=== PATIENT | female | born 1985 | race Caucasian/White ===

== ENCOUNTER 2020-08-31 20:03 | Emergency (ER) | payer OTHER, MEDICAID, SELFPAY ==
[2020-08-31] VITALS (9 sets, daily range): BP systolic 104–112; BP diastolic 62–68; PULSE 81–92; RESP 12–29; TEMP 36.9; O2SAT 94–100
--- NOTE | 2020-08-31 20:09 | ED.AMS ---
HPI - Altered Mental Status General Chief Complaint: Unresponsive Stated Complaint: Passed Out Time Seen by Provider: 08/31/20 20:05 Limitations: altered mental status History of Present Illness HPI narrative: Patient is a 34-year-old female who is brought in by her friend who states that she has a severe alcoholism. Apparently she does not drink she has a seizure or starts shaking. She is wanting detox. She called her friend bring her to the emergency department. While in line at [id number] to get food on the way she passed out and is now on arousable. Unaware of any other drug use. Review of Systems Review of Systems ROS Unobtainable: Unobtainable due to medical condition Exam Initial Vital Signs Initial Vital Signs: Vital Signs Pulse Rate 92 H 08/31/20 20:11 Respiratory Rate 20 08/31/20 20:11 Blood Pressure 112/66 08/31/20 20:11 Pulse Oximetry 94 08/31/20 20:11 GENERAL: Responsive to pain, weak gag reflex HEENT: Head atraumatic,EOMI, pupils dilated reactive to light CARDIOVASCULAR: Regular rate and rhythm without murmurs, rubs or gallops. RESPIRATORY: Breath sounds equal bilaterally, no wheezes rales or rhonchi. ABDOMEN: Soft, nontender. Normoactive bowel sounds all 4 quadrants. No guarding or rebound. EXTREMITIES: Normal range of motion, no clubbing or edema. Neurovascularly intact NEUROLOGICAL: Responsive to his pain mild gag SKIN: Warm, dry, no laceration, no petechiae, no rashes or lesions. Course Orders Ordered: ED Orders 09/01/20 02:06 [place] [facility] [place] [facility] [place] Sodium Chloride (Normal Saline 0.9%) 1,000 mls @ 150 mls/hr IV CONT AYAZ Last Infusion: 09/01/20 03:37 Dose: 0 mls/hr Documented by: Admin: 08/31/20 20:15 Dose: 150 mls/hr Documented by: [email or web address] Vital Signs Vital signs: Vital Signs - 8 hr 08/31/20 23:30 09/01/20 00:00 09/01/20 00:30 Pulse Rate 81 80 88 Respiratory Rate 29 H 15 21 Blood Pressure Pulse Oximetry 97 100 09/01/20 00:54 09/01/20 01:00 09/01/20 01:10 Pulse Rate 83 86 87 Respiratory Rate 16 18 15 Blood Pressure 108/69 106/63 100/56 L Pulse Oximetry 100 98 98 09/01/20 01:30 09/01/20 02:00 09/01/20 02:30 Pulse Rate 76 77 74 Respiratory Rate 14 13 14 Blood Pressure 102/58 L 101/66 88/52 L Pulse Oximetry 99 98 99 09/01/20 02:36 09/01/20 03:00 09/01/20 03:30 Pulse Rate 87 78 80 Respiratory Rate 16 15 15 Blood Pressure 92/57 L 100/58 L 102/67 Pulse Oximetry 99 99 92 09/01/20 04:00 09/01/20 04:30 09/01/20 05:00 Pulse Rate 72 75 76 Respiratory Rate 13 13 15 Blood Pressure 97/65 92/50 L Pulse Oximetry 97 98 99 09/01/20 05:01 09/01/20 05:30 09/01/20 06:00 Pulse Rate 75 82 78 Respiratory Rate 15 16 13 Blood Pressure 104/70 106/65 111/63 Pulse Oximetry 100 99 100 09/01/20 06:30 Pulse Rate 84 Respiratory Rate Blood Pressure Pulse Oximetry 100 MDM - Altered Mental Status Lab Data Attestation: I reviewed the patient's lab results. Result diagrams: 08/31/20 20:00 08/31/20 20:00 Labs: Lab Results 08/31/20 08/31/20 08/31/20 Range/Units 20:00 20:00 20:00 WBC 9.0 (4.5-11.0) X10^3/uL RBC 3.93 L (4.0-5.2) X10^6/uL Hgb 12.4 (12.0-16.0) g/dL Hct 36.1 (36-46) % MCV 91.9 (80-100) fL MCH 31.5 (26-34) PG MCHC 34.2 (30-36) % RDW 12.6 (11.6-14.8) % Plt Count 315 (150-400) X10^3/uL Neut % (Auto) 41.9 L (50-75) % Lymph % (Auto) 48.7 H (25-40) % [place] % (Auto) 6.3 (3-14) % Eos % (Auto) 2.4 (2-4) % Baso % (Auto) 0.7 (0-2) % Neut # (Auto) 3800 (6616-5432) /uL Lymph # (Auto) 4400 (3156-0578) /uL [place] # (Auto) 600 (0-900) /uL Eos # (Auto) 200 (0-450) /uL Baso # (Auto) 100 (0-100) /uL ABG pH (7.35-7.45) ABG pCO2 (35-45) mmHg ABG pO2 (80-100) mmHg ABG HCO3 (22-26) mmol/L ABG Total CO2 (21-31) mmol/L ABG O2 Saturation (95-100) % ABG Base Excess (-2-2) mmol/L FiO2 Sodium 145 (137-145) mmol/L Potassium 3.9 (3.4-5.1) mmol/L Chloride 108 H (98-107) mmol/L Carbon Dioxide 26 (22-32) mmol/L BUN 13 (7-17) mg/dL Creatinine 0.73 (0.52-1.04) mg/dL Estimated GFR > 60.0 (>60) mL/min BUN/Creatinine Ratio 17.8 (6-22) Glucose 93 (70-100) mg/dL Lactate (0.7-2.1) mmol/L Calcium 8.2 L (8.4-10.2) mg/dL Total Bilirubin 0.2 (0.2-1.3) mg/dL AST 29 (14-36) IU/L ALT 28 (<35) IU/L Alkaline Phosphatase 37 L (38-126) U/L Total Creatine Kinase 74 (30-135) U/L CK-MB (CK-2) TNP CK-MB (CK-2) Rel Index TNP Troponin I < 0.012 (0.01-0.034) ng/mL Total Protein 6.6 (6.3-8.2) g/dL Albumin 4.0 (3.5-5.0) g/dL Globulin 2.6 (1.7-4.1) g/dL Albumin/Globulin Ratio 1.5 (1.0-2.8) TSH (0.47-4.68) uIU/mL Prolactin 21.9 H (3.0-18.6) ng/mL Salicylates < 1.0 (<20) mg/dL U Opiates 300ng/mL cut (Negative) Ur Oxycodone Screen (Negative) Urine Methadone Screen (Negative) Acetaminophen < 10 L (10-30) ug/mL Ur Barbiturates Screen (Negative) U Tricyclic Antidepress (Negative) Ur Phencyclidine Scrn (Negative) Ur Amphetamines Screen (Negative) U Methamphetamines Scrn (Negative) Ur MDMA Scrn (Ecstasy) (Negative) U Benzodiazepines Scrn (Negative) Urine Cocaine Screen (Negative) U Marijuana (THC) Screen (Negative) Ethyl Alcohol 455 H* ( - 10) mg/dL 08/31/20 08/31/20 08/31/20 Range/Units 20:00 20:00 20:05 WBC (4.5-11.0) X10^3/uL RBC (4.0-5.2) X10^6/uL Hgb (12.0-16.0) g/dL Hct (36-46) % MCV (80-100) fL MCH (26-34) PG MCHC (30-36) % RDW (11.6-14.8) % Plt Count (150-400) X10^3/uL Neut % (Auto) (50-75) % Lymph % (Auto) (25-40) % [place] % (Auto) (3-14) % Eos % (Auto) (2-4) % Baso % (Auto) (0-2) % Neut # (Auto) (3466-3543) /uL Lymph # (Auto) (2150-7693) /uL [place] # (Auto) (0-900) /uL Eos # (Auto) (0-450) /uL Baso # (Auto) (0-100) /uL ABG pH 7.42 (7.35-7.45) ABG pCO2 44.1 (35-45) mmHg ABG pO2 100 (80-100) mmHg ABG HCO3 29 H (22-26) mmol/L ABG Total CO2 30 (21-31) mmol/L ABG O2 Saturation 98 (95-100) % ABG Base Excess 4.0 H (-2-2) mmol/L FiO2 21 Sodium (137-145) mmol/L Potassium (3.4-5.1) mmol/L Chloride (98-107) mmol/L Carbon Dioxide (22-32) mmol/L BUN (7-17) mg/dL Creatinine (0.52-1.04) mg/dL Estimated GFR (>60) mL/min BUN/Creatinine Ratio (6-22) Glucose (70-100) mg/dL Lactate 1.8 (0.7-2.1) mmol/L Calcium (8.4-10.2) mg/dL Total Bilirubin (0.2-1.3) mg/dL AST (14-36) IU/L ALT (<35) IU/L Alkaline Phosphatase (38-126) U/L Total Creatine Kinase (30-135) U/L CK-MB (CK-2) CK-MB (CK-2) Rel Index Troponin I (0.01-0.034) ng/mL Total Protein (6.3-8.2) g/dL Albumin (3.5-5.0) g/dL Globulin (1.7-4.1) g/dL Albumin/Globulin Ratio (1.0-2.8) TSH 0.410 L (0.47-4.68) uIU/mL Prolactin (3.0-18.6) ng/mL Salicylates (<20) mg/dL U Opiates 300ng/mL cut (Negative) Ur Oxycodone Screen (Negative) Urine Methadone Screen (Negative) Acetaminophen (10-30) ug/mL Ur Barbiturates Screen (Negative) U Tricyclic Antidepress (Negative) Ur Phencyclidine Scrn (Negative) Ur Amphetamines Screen (Negative) U Methamphetamines Scrn (Negative) Ur MDMA Scrn (Ecstasy) (Negative) U Benzodiazepines Scrn (Negative) Urine Cocaine Screen (Negative) U Marijuana (THC) Screen (Negative) Ethyl Alcohol ( - 10) mg/dL 08/31/20 Range/Units 20:50 WBC (4.5-11.0) X10^3/uL RBC (4.0-5.2) X10^6/uL Hgb (12.0-16.0) g/dL Hct (36-46) % MCV (80-100) fL MCH (26-34) PG MCHC (30-36) % RDW (11.6-14.8) % Plt Count (150-400) X10^3/uL Neut % (Auto) (50-75) % Lymph % (Auto) (25-40) % [place] % (Auto) (3-14) % Eos % (Auto) (2-4) % Baso % (Auto) (0-2) % Neut # (Auto) (3826-1425) /uL Lymph # (Auto) (6416-3051) /uL [place] # (Auto) (0-900) /uL Eos # (Auto) (0-450) /uL Baso # (Auto) (0-100) /uL ABG pH (7.35-7.45) ABG pCO2 (35-45) mmHg ABG pO2 (80-100) mmHg ABG HCO3 (22-26) mmol/L ABG Total CO2 (21-31) mmol/L ABG O2 Saturation (95-100) % ABG Base Excess (-2-2) mmol/L FiO2 Sodium (137-145) mmol/L Potassium (3.4-5.1) mmol/L Chloride (98-107) mmol/L Carbon Dioxide (22-32) mmol/L BUN (7-17) mg/dL Creatinine (0.52-1.04) mg/dL Estimated GFR (>60) mL/min BUN/Creatinine Ratio (6-22) Glucose (70-100) mg/dL Lactate (0.7-2.1) mmol/L Calcium (8.4-10.2) mg/dL Total Bilirubin (0.2-1.3) mg/dL AST (14-36) IU/L ALT (<35) IU/L Alkaline Phosphatase (38-126) U/L Total Creatine Kinase (30-135) U/L CK-MB (CK-2) CK-MB (CK-2) Rel Index Troponin I (0.01-0.034) ng/mL Total Protein (6.3-8.2) g/dL Albumin (3.5-5.0) g/dL Globulin (1.7-4.1) g/dL Albumin/Globulin Ratio (1.0-2.8) TSH (0.47-4.68) uIU/mL Prolactin (3.0-18.6) ng/mL Salicylates (<20) mg/dL U Opiates 300ng/mL cut Negative (Negative) Ur Oxycodone Screen Negative (Negative) Urine Methadone Screen Negative (Negative) Acetaminophen (10-30) ug/mL Ur Barbiturates Screen Negative (Negative) U Tricyclic Antidepress Negative (Negative) Ur Phencyclidine Scrn Negative (Negative) Ur Amphetamines Screen Negative (Negative) U Methamphetamines Scrn Negative (Negative) Ur MDMA Scrn (Ecstasy) Negative (Negative) U Benzodiazepines Scrn Positive H (Negative) Urine Cocaine Screen Negative (Negative) U Marijuana (THC) Screen Negative (Negative) Ethyl Alcohol ( - 10) mg/dL Point of Care Testing Test Results Negative Glucose POC 96 Urine Dip Bedside Urine Glucose Negative Bedside Urine Bilirubin - Negative Bedside Urine Ketone - Negative Urine Specific [place] 1.025 Bedside Urine Occult Blood - Negative Bedside Urine pH 6.0 Bedside Urine Protein - Negative Bedside Urine Urobilinogen - Negative Bedside Urine Nitrite - Negative Bedside Urine Leukocytes - Negative Esterase MDM Narrative Medical decision making narrative: There is no sign of trauma. Patient does start pulling on younger and rolls over. At this time awaiting for alcohol result. Alcohol is elevated. The patient does have an Jaye report that shows she got 20 tablets of Xanax on 08/28/2020. Her urine is also positive for benzos. Awaiting for her to become more awake. 0630 patient is awake and has a steady gait to the restroom. She initially stated that she wanted to just go drink and leave. When I asked her if she wanted detox she said yes and no. She is choosing to call her friend and be discharged. She denied any suicidal ideation. Discharge Plan Departure Patient Disposition: Home Clinical Impression: Alcohol intoxication Qualifiers: Complication of substance-induced condition: uncomplicated Qualified Code(s): F10.920 - Alcohol use, unspecified with intoxication, uncomplicated Instructions: Delirium Tremens Activity Restrictions/Additional Instructions: *You have been diagnosed with alcohol intoxication *What to do: At this time if you should ever want detox your more than welcome to return to the emergency department. It is strongly recommended that you stop drinking under supervision *Continue to take medications as directed *Follow up with your primary care provider in 2-3 days *Return to ER if you should have any new, worsening or concerning symptoms
[2020-08-31 20:13] LABS: Add Manual Diff / Slide Review NO; Basophils Absolute Auto 100 /uL (0-100); Basophils Percent Auto 0.7 % (0-2); Eosinophils Absolute Auto 200 /uL (0-450); Eosinophils Percent Auto 2.4 % (2-4); Hematocrit 36.1 % (36-46); Hemoglobin 12.4 g/dL (12.0-16.0); Lymphocytes Absolute Auto 4400 /uL (1100-4500); Lymphocytes Percent Auto 48.7 % (25-40); Mean Corpuscular HGB Conc 34.2 % (30-36); Mean Corpuscular Hemoglobin 31.5 PG (26-34); Mean Corpuscular Volume 91.9 fL (80-100); Monocytes Absolute Auto 600 /uL (0-900); Monocytes Percent Auto 6.3 % (3-14); Neutrophils Absolute Auto 3800 /uL (1500-7000); Neutrophils Percent Auto 41.9 % (50-75); Platelet Count 315 X10^3/uL (150-400); Red Blood Cell Count 3.93 X10^6/uL (4.0-5.2); Red Cell Distribution Width 12.6 % (11.6-14.8)
[2020-08-31] MEDS: SODIUM CHLORIDE 0.9% 1,000 ML 150 ML IV (20:15)
--- NOTE | 2020-08-31 20:20 | PC.NURSE ---
Pt found unresponsive in passenger seat of car in ED entrance. opens eyes briefly to noxious stimuli. assisted into WC and brought into rm 1. GCS 8. intubation equipment at bedside. pt with +gag/cough at this time. placed on suture gauger in line of sight room, placed on ETCO2, 99% RA. ETCO2 44. NSR 88, BP 112/66. Friend at bedside states pt called her asking her to bring to ED for detox. ingested unk amt of ETOH. Friend states they are coworkers and she does not know pt that well. Narcan 2mg IV given per verbal order by Dr Sheriff with no change in mentation. HOB elevated, intermittently moving extremities, maintaining patent aiway.
[2020-08-31 20:26] LABS: Creatine Kinase 74 U/L (30-135); Lactate (Lactic Acid) 1.8 mmol/L (0.7-2.1)
[2020-08-31 20:28] LABS: Acetaminophen < 10 ug/mL (10-30); Alanine Aminotransferase 28 IU/L (<35); Albumin Globulin Ratio 1.5 (1.0-2.8); Alkaline Phosphatase 37 U/L (38-126); Aspartate Aminotransferase 29 IU/L (14-36); BUN Creatinine Ratio 17.8 (6-22); Bilirubin Total 0.2 mg/dL (0.2-1.3); Blood Urea Nitrogen 13 mg/dL (7-17); Calcium 8.2 mg/dL (8.4-10.2); Carbon Dioxide 26 mmol/L (22-32); Chloride 108 mmol/L (98-107); Estimated Glomerular Filt Rate > 60.0 mL/min (>60); Globulin 2.6 g/dL (1.7-4.1); Glucose 93 mg/dL (70-100); HEMOLYSIS < 15 (0-50); Potassium 3.9 mmol/L (3.4-5.1); Salicylate < 1.0 mg/dL (<20); Sodium 145 mmol/L (137-145); Total Protein 6.6 g/dL (6.3-8.2)
[2020-08-31 20:39] LABS: Troponin I < 0.012 ng/mL (0.01-0.034)
[2020-08-31 20:44] LABS: Prolactin 21.9 ng/mL (3.0-18.6)
[2020-08-31 20:46] LABS: HCO3 ABG 29 mmol/L (22-26); PCO2 ABG 44.1 mmHg (35-45); PO2 ABG 100 mmHg (80-100); pH ABG 7.42 (7.35-7.45)
[2020-08-31 20:47] LABS: Fractionated Inspired Oxygen 21; Oxygen Saturation ABG 98 % (95-100); TCO2 ABG 30 mmol/L (21-31)
[2020-08-31 20:52] LABS: Ethanol (ETOH) 455 mg/dL
[2020-08-31 21:19] LABS: UR Morphine/Opiate cutoff 300 Negative (Negative); Ur Creatinine 20 (Normal); Ur Specific Gravity 1.015 (Normal); Urine Amphetamines Negative (Negative); Urine Barbiturates Negative (Negative); Urine Benzodiazepines Positive (Negative); Urine Cocaine Negative (Negative); Urine MDMA Negative (Negative); Urine Methamphetamines Negative (Negative); Urine Phencyclidine Negative (Negative); Urine Tetrahydrocannabinol Negative (Negative); Urine pH 5 (Normal)
[2020-08-31 21:20] LABS: Urine Methadone Negative (Negative); Urine Oxycodone Negative (Negative); Urine Tricyclic Antidepressant Negative (Negative)
[2020-09-01] VITALS (18 sets, daily range): BP systolic 88–111; BP diastolic 50–70; PULSE 72–88; RESP 13–21; O2SAT 92–100
== END 2020-09-01 07:02 | disposition home or self-care (01) ==
PROVIDERS: Emergency Provider Emergency Medicine
DX: F10.129 Alcohol abuse with intoxication, unspecified (principal); Y90.8 Blood alcohol level of 240 mg/100 ml or more
CPT/HCPCS: 36415; 36600; 80053; 80305; 80320; 80329; 81003; 81025; 82550; 82805; 82962; 83605; 84146; 84443; 84484; 85025; 93005; 93010; 96360; 96361; 99284; G0480